=== PATIENT | male | born 1970 | race Caucasian/White ===

== ENCOUNTER 2016-07-10 13:55 | Emergency (ER) | payer MEDICAID ==
[2016-07-10] MEDS ORDERED: MAG HYDROX/AL HYDROX/SIMETH 30 ML UDC PO STA (15:32)
[2016-07-10] MEDS ORDERED: LIDOCAINE VISCOUS 2% 15 ML UDC MM STA (15:32)
[2016-07-10] MEDS ORDERED: FAMOTIDINE 20 MG TABLET PO STA (15:32)
--- NOTE | 2016-07-10 15:35 | ED Physician Documentation ---
History of Present Illness - Stated complaint Stated Complaint: CHEST PX, SOA - Chief complaint Chief Complaint: Cardiac - Additonal information Additional information: hx from pt 46 male smoker hx PUD s/p surgery for same out of omeprazole for 2 weeks sharp int pleuritic left sided CP since 730 Am mild cough no fever no leg swelling no travel Review of Systems Constitutional: denies: Fever, Chills Cardiac: reports: Chest pain / pressure. denies: Palpitations Respiratory: reports: Dyspnea, Cough GI: reports: Abdominal Pain (LUQ) Musculoskeletal: denies: Extremity swelling, Joint swelling Neurologic: denies: Generalized weakness Immunocompromised: denies: Immunocompromised PD PAST MEDICAL HISTORY - Past Medical History Cardiovascular: None Respiratory: None Neuro: Headache/migraine Endocrine/Autoimmune: None GI: GERD, Ulcers, Other : None HEENT: None Psych: None Musculoskeletal: None - Past Surgical History Past Surgical History: Yes General: Appendectomy, Gastric surgery (Exploratory laparotomy for perforated peptic ulcer.) HEENT: Tonsil/Adenoidectomy - Present Medications Home Medications: Ambulatory Orders Medication Instructions Recorded Confirmed Omeprazole 20 mg PO BID #60 capsule. 08/09/15 07/10/16 Omeprazole [PriLOSEC] 20 mg PO BID #60 capsule 07/10/16 - Allergies Allergies/Adverse Reactions: Allergies Allergy/AdvReac Type Severity Reaction Status Date / Time No Known Drug Allergies Allergy Verified 07/10/16 14:02 - Social History Does the pt smoke?: Yes Smoking Status: Current every day smoker Does the pt drink ETOH?: Yes Does the pt have substance abuse?: No - Immunizations Immunizations are current?: Yes Immunizations: TDAP current <10years - POLST Patient has POLST: No Results - Vitals Vitals: Vital Signs - 24 hr 07/10/16 07/10/16 13:59 15:50 Temperature 36.7 C Heart Rate 85 57 L Respiratory 14 16 Rate Blood Pressure 154/82 H 165/90 H O2 Saturation 100 99 Oxygen O2 Source Room air - EKG (time done) 1409 Rate: Rate (enter#) (77) Rhythm: NSR [place]: Normal Intervals: Normal ME QRS: Normal Ischemia: Normal ST segments - Labs Labs: Laboratory Tests 07/10/16 16:30 Troponin I < 0.04 - Rads (name of study) CXR Radiology: See rad report (hyperinflated lungs, no acute process, no pneumo) PD MEDICAL DECISION MAKING - ED course ED course: PERC negative EKG non ischemic, will check trop, if neg after 8 hr of sx feel ACS ruled out CXR to eval for pneumo and GI meds in case this is referred from his PUD exacerbated by being out of meds he feels totally better after GI meds and is reassured re neg wup Departure - Departure Disposition: 01 Home, Self Care Clinical Impression: GERD (gastroesophageal reflux disease) Qualifiers: Esophagitis presence: esophagitis presence not specified Qualified Code(s): K21.9 - Gastro-esophageal reflux disease without esophagitis Instructions: ED GERD Prescriptions: Omeprazole [PriLOSEC] 20 mg PO DAILY #14 capsule Comments: Please follow up with your PMD about your blood pressure - it was high today
[2016-07-10 15:51] VITALS: BP 165/90
[2016-07-10] MEDS ORDERED: LIDOCAINE VISCOUS 2% 15 ML UDC MM ONE (15:55)
[2016-07-10] MEDS ORDERED: FAMOTIDINE 20 MG TABLET ONE (15:55)
[2016-07-10] MEDS ORDERED: MAG HYDROX/AL HYDROX/SIMETH 30 ML UDC ONE (15:56)
--- NOTE | 2016-07-10 16:02 | XRAY Preliminary Report ---
Exam: XR Chest 2 View PA/LAT IMPRESSION: 1. Hyperinflated lungs. 2. No acute pulmonary process. [facility] SITE ID: [id number]
--- NOTE | 2016-07-10 16:30 | XRAY Report ---
EXAM: CHEST RADIOGRAPHY EXAM DATE: 07/10/2016 03:43 p.m. CLINICAL HISTORY: Dyspnea and chest pain. COMPARISON: 09/01/2013. TECHNIQUE: 2 views. FINDINGS: Lungs/Pleura: Lungs are mildly hyperinflated. No focal opacities. No pneumothorax or effusions. Mediastinum: Heart and mediastinal contours are unremarkable. Other: Probable pectus excavatum. IMPRESSION: 1. Hyperinflated lungs. 2. No acute pulmonary process. [facility] Referring Provider Line: [phone] SITE ID: [id number]
== END 2016-07-10 17:19 | disposition home or self-care (01) ==
LOC: ED 13:55
DX: K21.9 Gastro-esophageal reflux disease without esophagitis (principal); Z87.11 Personal history of peptic ulcer disease; F17.200 Nicotine dependence, unspecified, uncomplicated
CPT/HCPCS: 36415; 71020; 84484; 93005; 93010; 99282; 99284; A9270

== ENCOUNTER 2016-10-08 15:33 | Emergency (ER) | payer MEDICAID ==
[2016-10-08 15:50] VITALS: BP 151/88
--- NOTE | 2016-10-08 20:26 | ED Physician Documentation ---
ED Addendum - Addendum Addendum: 10/08/16 20:26 pt not in room per nurse he had to go to work and will come back
== END 2016-10-08 16:15 | disposition left against medical advice (07) ==
LOC: ED 15:33
DX: Z53.21 Procedure and treatment not carried out due to patient leaving prior to being seen by health care provider (principal)
CPT/HCPCS: 99281

== ENCOUNTER 2017-05-03 17:50 | Emergency (ER) | payer MEDICAID ==
[2017-05-03 18:03] VITALS: BP 171/109
[2017-05-03] MEDS ORDERED: PANTOPRAZOLE 40 MG TABLET PO STA (18:09)
--- NOTE | 2017-05-03 18:12 | ED Physician Documentation ---
PD HPI ABD PAIN - Stated complaint Stated Complaint: LT ABDOMINAL PX - Chief complaint Chief Complaint: Abd Pain - History obtained from History obtained from: Patient - History of Present Illness Timing - onset: Other (47-year-old gentleman with history of ulcers and gastritis, he actually had a perforated ulcer in 2013. He has not been following up with primary care and therefore has not been getting a prescription for his omeprazole and he has been paying out of pocket due to monetary constraints he ran out of omeprazole about a month and a half ago. Within the a few days after running out he started to get epigastric and Left upper quadrant pain that is worse in the mornings with reflux. No acute issue but he would like a refill of his omeprazole. Of note he does drink fairly heavily, a sixpack a night, and was counseled that this certainly is not making his stomach issues any better.) Review of Systems Constitutional: denies: Fever, Chills Cardiac: denies: Chest pain / pressure, Palpitations Respiratory: denies: Dyspnea, Cough GI: reports: Nausea. denies: Vomiting, Bloody / black stool PD PAST MEDICAL HISTORY - Past Medical History Cardiovascular: None Respiratory: None Neuro: Headache/migraine Endocrine/Autoimmune: None GI: GERD, Ulcers, Other : None HEENT: None Psych: None Musculoskeletal: None - Past Surgical History Past Surgical History: Yes General: Appendectomy, Gastric surgery HEENT: Tonsil/Adenoidectomy - Present Medications Home Medications: Ambulatory Orders Medication Instructions Recorded Confirmed Omeprazole 20 mg PO BID #120 capsule. 05/03/17 Omeprazole [PriLOSEC] 40 mg PO BID 05/03/17 05/03/17 - Allergies Allergies/Adverse Reactions: Allergies Allergy/AdvReac Type Severity Reaction Status Date / Time No Known Drug Allergies Allergy Verified 10/08/16 15:41 - Social History Does the pt smoke?: Yes Smoking Status: Current every day smoker Does the pt drink ETOH?: Yes Does the pt have substance abuse?: No - Immunizations Immunizations are current?: Yes Immunizations: TDAP current <10years - POLST Patient has POLST: No PD ED PE NORMAL - Vitals Vital signs reviewed: Yes - General General: Alert and oriented X 3, No acute distress - Abdomen Abdomen: Normal bowel sounds, Soft, Non tender - Neuro Neuro: Alert and oriented X 3, Normal speech Results - Vitals Vitals: Vital Signs - 24 hr 05/03/17 17:56 Temperature 36.8 C Heart Rate 84 Respiratory 18 Rate Blood Pressure 171/109 H O2 Saturation 99 Oxygen O2 Source Room air PD MEDICAL DECISION MAKING - ED course ED course: 47-year-old gentleman with chronic ulcers/gastritis issues who ran out of his medications because he has not been seeing his doctor. He was counseled to cut back on alcohol and follow-up with his primary care physician. He is nontender and therefore there is no evidence of acute emergency medical condition. Departure - Departure Disposition: Home, Self Care Clinical Impression: Medication refill Gastritis Qualifiers: Gastritis type: unspecified gastritis Chronicity: chronic Gastritis bleeding: without bleeding Qualified Code(s): K29.50 - Unspecified chronic gastritis without bleeding Condition: Good Record reviewed to determine appropriate education?: Yes Instructions: ED PUD Vs Gastritis Follow-Up: Jolene Villeda PA-C [Physician No Access] - Prescriptions: Omeprazole 20 mg PO BID #120 capsule. Comments: Call your doctor to arrange a follow-up appointment, make the next available appointment. In the interim, return anytime if worse or if new symptoms develop. Your blood pressure was elevated today on check into the emergency department. This does not mean that you have hypertension, it is a common phenomenon to come to the emergency department and have elevated blood pressure. I recommend that you see your primary care physician within the week to have it rechecked when you are feeling better.
== END 2017-05-03 18:16 | disposition home or self-care (01) ==
LOC: ED 17:50
DX: K29.50 Unspecified chronic gastritis without bleeding (principal); Z76.0 Encounter for issue of repeat prescription; F17.200 Nicotine dependence, unspecified, uncomplicated; Z87.11 Personal history of peptic ulcer disease; R03.0 Elevated blood-pressure reading, without diagnosis of hypertension
CPT/HCPCS: 99283; A9270

== ENCOUNTER 2018-10-13 11:00 | Outpatient (CLI) | payer MEDICAID | END 2018-10-13 11:01 | disposition short-term general hospital (02) | LOC: EMS 11:00 | PROVIDERS: ATTEND Surgery | DX: R07.9 Chest pain, unspecified (principal) | CPT/HCPCS: A0425; A0427; A0999 ==

== ENCOUNTER 2019-03-19 12:01 | Emergency (ER) | payer MEDICAID ==
[2019-03-19] MEDS ORDERED: LIDOCAINE-EPINEPH-TETRACAINE 3 ML SYRINGE TOP STA (12:16)
--- NOTE | 2019-03-19 12:23 | ED Physician Documentation ---
History of Present Illness - Stated complaint Stated Complaint: NOSE BLEED - Chief complaint Chief Complaint: Heent - History obtained from History obtained from: Patient - History of Present Illness Timing: Last night (Since last night he has had a pretty constant nosebleed on the left. He does feel weak and dizzy from the blood loss. Note made that he drinks heavily and daily. He does not have a history of nosebleeds. Is not medically anticoagulated.) Review of Systems Constitutional: denies: Fever, Chills Nose: denies: Rhinorrhea / runny nose, Congestion Throat: denies: Sore throat PD PAST MEDICAL HISTORY - Past Medical History Cardiovascular: None Respiratory: None Endocrine/Autoimmune: None GI: GERD, Ulcers, Other : None HEENT: None Psych: None Musculoskeletal: None - Past Surgical History Past Surgical History: Yes General: Appendectomy, Gastric surgery HEENT: Tonsil/Adenoidectomy - Present Medications Home Medications: Ambulatory Orders Medication Instructions Recorded Confirmed Omeprazole [PriLOSEC] 40 mg PO BID 05/03/17 05/03/17 - Allergies Allergies/Adverse Reactions: Allergies Allergy/AdvReac Type Severity Reaction Status Date / Time No Known Drug Allergies Allergy Verified 03/19/19 12:11 - Social History Does the pt smoke?: Yes Smoking Status: Current every day smoker Does the pt drink ETOH?: Yes Does the pt have substance abuse?: No - Immunizations Immunizations are current?: Yes Immunizations: TDAP current <10years - POLST Patient has POLST: No PD ED PE NORMAL - Vitals Vital signs reviewed: Yes - General General: Alert and oriented X 3, No acute distress - HEENT HEENT: Other (Held active bleeding from the left nares, unable to see a source on initial examination. Let placed with a cottonball during exam.) - Neck Neck: Supple, no meningeal sign, No bony TTP - Neuro Neuro: Alert and oriented X 3, Normal speech Results - Vitals Vitals: Vital Signs - 24 hr 03/19/19 12:08 Temperature 37.4 C Heart Rate 88 Respiratory 18 Rate Blood Pressure 173/94 H O2 Saturation 95 Oxygen O2 Source Room air - Labs Labs: Laboratory Tests 03/19/19 03/19/19 03/19/19 12:38 12:38 12:38 WBC 7.9 RBC 4.31 L Hgb 14.8 Hct 44.0 MCV 102.1 H MCH 34.3 H MCHC 33.6 RDW 12.5 Plt Count 187 MPV 10.4 Neut # (Auto) 6.0 Lymph # (Auto) 1.1 L [place] # (Auto) 0.6 Eos # (Auto) 0.1 Baso # (Auto) 0.1 Absolute Nucleated RBC 0.00 Nucleated RBC % 0.0 PT 10.7 INR 0.9 Sodium 137 Potassium 4.3 Chloride 100 L Carbon Dioxide 22 Anion Gap 15.0 H BUN 13 Creatinine 0.7 Estimated GFR (MDRD) 120 Glucose 105 H Calcium 9.2 Total Bilirubin 0.8 AST 48 H ALT 39 Alkaline Phosphatase 54 Total Protein 7.6 Albumin 4.6 Globulin 3.0 Albumin/Globulin Ratio 1.5 Lipase 26 Procedures - Epistaxis Site: Left, Anterior Preparation: Clots removed, Other (LET) Treatment: Silver Nitrate Other: Observed - no bleeding, Pt tolerated well Departure - Departure Disposition: 01 Home, Self Care Clinical Impression: Epistaxis Condition: Good Record reviewed to determine appropriate education?: Yes Instructions: ED Nosebleed Comments: Call your doctor to arrange a follow-up appointment, make the next available appointment. In the interim, return anytime if worse or if new symptoms develop. Your blood pressure was elevated today on check into the emergency department. This does not mean that you have hypertension, it is a common phenomenon to come to the emergency department and have elevated blood pressure. I recommend that you see your primary care physician within the week to have it rechecked when you are feeling better.
[2019-03-19 13:07] LABS: BASOPHILS # (AUTO) 0.1 10^3/uL (0.0-0.1); BASOPHILS % (AUTO) 0.8 %; EOSINOPHILS # (AUTO) 0.1 10^3/uL (0.0-0.7); EOSINOPHILS % (AUTO) 1.4 %; HGB - HEMOGLOBIN 14.8 g/dL (14.0-18.0); LYMPHOCYTES # (AUTO) 1.1 10^3/uL (1.5-3.5); LYMPHOCYTES % (AUTO) 14.2 %; MEAN CORPUSCULAR HEMOGLOBIN 34.3 pg (27.0-31.0); MEAN CORPUSCULAR HGB CONC 33.6 g/dL (32.0-36.0); MEAN CORPUSCULAR VOLUME 102.1 fL (80.0-94.0); MEAN PLATELET VOLUME 10.4 fL (7.4-11.4); MONOCYTES # (AUTO) 0.6 10^3/uL (0.0-1.0); MONOCYTES % (AUTO) 7.1 %; PLT - PLATELET COUNT 187 10^3/uL (130-450); RED BLOOD COUNT 4.31 10^6/uL (4.70-6.10); RED CELL DISTRIBUTION WIDTH 12.5 % (12.0-15.0); WHITE BLOOD COUNT 7.9 x10^3/uL (4.8-10.8)
[2019-03-19 13:13] LABS: INR 0.9 (0.8-1.2); PT - PROTHROMBIN TIME 10.7 secs (9.9-12.6)
[2019-03-19 13:19] LABS: ALBUMIN 4.6 g/dL (3.2-5.5); ALBUMIN/GLOBULIN RATIO 1.5 (1.0-2.2); BILIRUBIN,TOTAL 0.8 mg/dL (0.2-1.0); CALCIUM 9.2 mg/dL (8.5-10.3); CREATININE 0.7 mg/dL (0.6-1.2); TOTAL PROTEIN 7.6 g/dL (6.7-8.2)
[2019-03-19 13:31] VITALS: BP 151/92
[2019-03-19] MEDS ORDERED: OXYMETAZOLINE HCL 100 SPRAYS BOTTLE NAS STA (13:31)
== END 2019-03-19 13:46 | disposition home or self-care (01) ==
LOC: ED 12:01
DX: R04.0 Epistaxis (principal); F17.200 Nicotine dependence, unspecified, uncomplicated; R03.0 Elevated blood-pressure reading, without diagnosis of hypertension; D69.6 Thrombocytopenia, unspecified
CPT/HCPCS: 30901; 36415; 80053; 83690; 85025; 85610; 99283; 99284; A9270

== ENCOUNTER 2019-03-19 20:57 | Outpatient (CLI) | payer MEDICAID | END 2019-03-19 20:58 | disposition EMS.NT | LOC: EMS 20:57 | PROVIDERS: ATTEND Surgery | DX: R04.0 Epistaxis (principal) | CPT/HCPCS: A0425; A0429 ==

== ENCOUNTER 2019-03-19 21:21 | Emergency (ER) | payer MEDICAID ==
--- NOTE | 2019-03-19 21:48 | ED Physician Documentation ---
History of Present Illness - Stated complaint Stated Complaint: EPISTAXIS - Chief complaint Chief Complaint: Heent - Additonal information Additional information: This is a 48-year-old male returns to emergency department with a nosebleed. Patient is a daily drinker and he states that he began having a nosebleed yesterday, it stopped on its own but then recurred today, he was seen here and had cautery performed which helped temporarily but then began to rebleed. He has not used his Afrin which was given to him, it was given once while he was department. He had labs drawn while he was in the emergency department which showed a mild thrombocytopenia, normal hemoglobin, unremarkable INR. He states the bleeding is from the left side of his nose. A nose clamp was placed by the paramedics in route. Review of Systems Constitutional: denies: Fever Nose: reports: Epistaxis Cardiac: denies: Chest pain / pressure Respiratory: denies: Dyspnea Neurologic: denies: Generalized weakness, Syncope PD PAST MEDICAL HISTORY - Past Medical History Cardiovascular: None Respiratory: None Endocrine/Autoimmune: None GI: GERD, Ulcers, Other : None HEENT: None Psych: None Musculoskeletal: None - Past Surgical History Past Surgical History: Yes General: Appendectomy, Gastric surgery HEENT: Tonsil/Adenoidectomy - Present Medications Home Medications: Ambulatory Orders Medication Instructions Recorded Confirmed Omeprazole [PriLOSEC] 40 mg PO BID 05/03/17 05/03/17 - Allergies Allergies/Adverse Reactions: Allergies Allergy/AdvReac Type Severity Reaction Status Date / Time No Known Drug Allergies Allergy Verified 03/19/19 12:11 - Social History Does the pt smoke?: Yes Smoking Status: Current every day smoker Does the pt drink ETOH?: Yes Does the pt have substance abuse?: No - Immunizations Immunizations are current?: Yes Immunizations: TDAP current <10years - POLST Patient has POLST: No PD ED PE NORMAL - Vitals Vital signs reviewed: Yes - General General: Alert and oriented X 3 - HEENT HEENT: Other (Nose clamps in place, when these are removed he has a slow trickle from the left nostril. There is no bleeding down the posterior pharynx. No obvious oozing from the right nare.) - Neck Neck: Supple, no meningeal sign - Cardiac Cardiac: RRR - Respiratory Respiratory: No respiratory distress, Clear bilaterally - Abdomen Abdomen: Soft, Non distended - Derm Derm: No rash - Extremities Extremities: No deformity - Neuro Neuro: Alert and oriented X 3 - Psych Psych: Normal mood, Normal affect Results - Vitals Vitals: Oxygen O2 Source Room air PD MEDICAL DECISION MAKING - ED course ED course: Patient arrives with nose clamps in place and very little oozing. There is no blood going down his posterior pharynx. no signs of posterior epistaxis. Sounds like at home he did not try using the nose clamps or the Afrin. We gave him 2 sprays of aspirin in each nostril the nose clamps were repositioned and proper location and they are left on for her 25 minutes, after when they removed patient had no oozing. Patient was reevaluated at 2300, he is at the nose clamps off for an hour and has had no repeat bleeding. He is feeling well. His vital signs are unremarkable. He had normal hemoglobin on his visit earlier today and he has not lost much blood since then, I do not feel that repeat labs are indicated at this time. I reviewed care for nosebleeds at home, avoiding any trauma to the nose and return precautions with the patient, who agrees with this plan and was discharged home in good condition. Departure - Departure Disposition: 01 Home, Self Care Clinical Impression: Epistaxis Condition: Good Instructions: Nosebleed Comments: You were seen today for nosebleed. I am glad that it has stopped. If it recurs, please use 2 sprays of Afrin in each nostril and then put the nose clamps back on as we discussed. If you are still having bleeding after 15 minutes, return to the emergency department. Avoid putting anything up your nose, do not blow your nose forcefully for the next several days, and if you are wiping your nose try to just dab at the nostrils, as forceful movements could dislodge clot and cause more bleeding. Follow-up with your primary care provider. As we discussed you had some mild abnormalities of your labs, which may be due to your drinking, please follow up with your primary care provider on these as well. Discharge Date/Time: 03/19/19 23:47
[2019-03-19 23:17] VITALS: BP 123/76
== END 2019-03-19 23:47 | disposition home or self-care (01) ==
LOC: ED 21:21
DX: R04.0 Epistaxis (principal); D69.6 Thrombocytopenia, unspecified; F17.200 Nicotine dependence, unspecified, uncomplicated

== ENCOUNTER 2019-07-19 15:10 | Emergency (ER) | payer MEDICAID ==
[2019-07-19 15:19] VITALS: BP 112/45
--- NOTE | 2019-07-19 15:57 | ED Physician Documentation ---
History of Present Illness - Stated complaint Stated Complaint: 'S NOTE - Chief complaint Chief Complaint: General - History obtained from History obtained from: Patient - History of Present Illness Timing: How many days ago (7) - Additonal information Additional information: 49-year-old gentleman comes to the emergency department requesting a doctor's note to return him to work. Patient reports that about 5 days ago he mowed his lawn pulled weeds. Few hours after that he began to have watery eyes. 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 Patient denies that over the last 4 to 5 days he has had any cough nasal congestion sore throat runny nose dyspnea chest pain. His isolated complaint was watery eyes for which he did not take any allergy medication. Work requires a note today to return. Review of Systems Constitutional: denies: Fever, Chills, Myalgias, Fatigue, Weight Loss, Sweats Eyes: reports: Other (watery eyes). denies: Loss of vision Ears: denies: Loss of hearing, Ear pain, Drainage/discharge Nose: denies: Rhinorrhea / runny nose, Congestion, Epistaxis, Sinus pressure / pain, Foreign Body Throat: denies: Dental pain / toothache, Oral lesions / sores Cardiac: denies: Chest pain / pressure, Palpitations Respiratory: denies: Dyspnea GI: denies: Abdominal Pain : denies: Dysuria, Frequency PD PAST MEDICAL HISTORY - Past Medical History Cardiovascular: None Respiratory: None Endocrine/Autoimmune: None GI: GERD, Ulcers, Other : None HEENT: None Psych: None Musculoskeletal: None - Past Surgical History Past Surgical History: Yes General: Appendectomy, Gastric surgery HEENT: Tonsil/Adenoidectomy - Present Medications Home Medications: Ambulatory Orders Medication Instructions Recorded Confirmed Omeprazole [PriLOSEC] 40 mg PO BID 05/03/17 05/03/17 - Allergies Allergies/Adverse Reactions: Allergies Allergy/AdvReac Type Severity Reaction Status Date / Time No Known Drug Allergies Allergy Verified 03/19/19 12:11 - Social History Does the pt smoke?: Yes Smoking Status: Current every day smoker Does the pt drink ETOH?: Yes Does the pt have substance abuse?: No Substance Use and Type: Marijuana - Immunizations Immunizations are current?: Yes Immunizations: TDAP current <10years - POLST Patient has POLST: No PD ED PE NORMAL - General General: Alert and oriented X 3, No acute distress, Well developed/nourished - HEENT HEENT: Atraumatic, PERRL, EOMI, Ears normal, Moist mucous membranes, Pharynx benign - Neck Neck: Supple, no meningeal sign, No adenopathy - Cardiac Cardiac: RRR, No murmur - Respiratory Respiratory: No respiratory distress - Abdomen Abdomen: Normal bowel sounds Results - Vitals Vitals: Vital Signs - 24 hr 07/19/19 15:15 Temperature 36.8 C Heart Rate 97 Respiratory 16 Rate Blood Pressure 112/45 L O2 Saturation 98 Oxygen O2 Source Room air PD MEDICAL DECISION MAKING - ED course Complexity details: d/w patient ED course: 49 year old male here for a work note to return to work as he developed watery eyes after moving his lawn 4 days ago - he has no symptoms suggestive of viral URI or COVID 19 symptoms and will defer testing today - work note provided to return him to work Departure - Departure Disposition: 01 Home, Self Care Condition: Stable Comments: Milton lewis are medically cleared to return to work today. In the future should you mow your lawn and developed watery eyes it is okay to take an [id number] allergy medicine such as Zyrtec or Claritin they are typically nonsedating.
--- NOTE | 2019-07-21 12:41 | ED Physician Documentation ---
Departure - Departure Disposition: 01 Home, Self Care Clinical Impression: Watery eyes Condition: Stable Comments: Milton lewis are medically cleared to return to work today. In the future should you mow your lawn and developed watery eyes it is okay to take an [id number] allergy medicine such as Zyrtec or Claritin they are typically nonsedating. Discharge Date/Time: 07/19/19 16:01
== END 2019-07-19 16:01 | disposition home or self-care (01) ==
LOC: ED 15:10
DX: H57.89 Other specified disorders of eye and adnexa (principal); F17.200 Nicotine dependence, unspecified, uncomplicated
CPT/HCPCS: 99281; 99284

== ENCOUNTER 2020-01-26 11:59 | Emergency (ER) | payer MEDICAID ==
[2020-01-26] MEDS ORDERED: HYDROmorphone 1 MG/ML CARPUJECT IM STA (13:05)
--- NOTE | 2020-01-26 13:13 | ED Physician Documentation ---
History of Present Illness - Stated complaint Stated Complaint: GLF LT SIDE PX - Chief complaint Chief Complaint: General - History of Present Illness Timing: How many days ago (3) - Additonal information Additional information: 49-year-old male presents the emergency department with 3 days left posterior lateral rib pain. He reports slipping off the back of his porch 3 nights ago and landing directly onto the ground on his left side. Since then he has had some swelling in these posterior ribs with ecchymosis. It does hurt to take a deep breath. He has had no hemoptysis. He does not carry a history of COPD or asthma. He is a heavy tobacco user. He reports a dry cough. Denies a history of high blood pressure or diabetes. When he fell he did not strike his head or lose consciousness and was able to get up on his own. No anticoagulation Review of Systems Constitutional: reports: Reviewed and negative Eyes: reports: Reviewed and negative Ears: reports: Reviewed and negative Nose: reports: Reviewed and negative Throat: reports: Reviewed and negative Cardiac: reports: Reviewed and negative Respiratory: reports: Cough. denies: Dyspnea, Hemoptysis, Wheezing GI: reports: Reviewed and negative : reports: Reviewed and negative Skin: reports: Other (ecchymosis left lateral posterior ribs) Musculoskeletal: reports: Other (left lateral posterior ribs). denies: Neck pain Neurologic: reports: Reviewed and negative Psychiatric: reports: Reviewed and negative PD PAST MEDICAL HISTORY - Past Medical History Past Medical History: Yes Cardiovascular: None Respiratory: None Endocrine/Autoimmune: None GI: GERD, Ulcers, Other : None HEENT: None Psych: None Musculoskeletal: None - Past Surgical History Past Surgical History: Yes General: Appendectomy, Gastric surgery HEENT: Tonsil/Adenoidectomy - Present Medications Home Medications: Ambulatory Orders Medication Instructions Recorded Confirmed Ibuprofen [Motrin] 600 mg PO Q6H PRN #30 tab 01/26/20 traMADol [Ultram] 50 mg PO TID PRN #15 tablet 01/26/20 - Allergies Allergies/Adverse Reactions: Allergies Allergy/AdvReac Type Severity Reaction Status Date / Time No Known Drug Allergies Allergy Verified 01/26/20 12:20 - Social History Does the pt smoke?: Yes Smoking Status: Current every day smoker Does the pt drink ETOH?: Yes Does the pt have substance abuse?: No - Immunizations Immunizations are current?: Yes Immunizations: TDAP current <10years - POLST Patient has POLST: No PD ED PE EXPANDED - General General: Alert, In Pain - Neck Neck: Supple w/out meningeal sx. No: Adenopathy, Bony TTP, Limited ROM - Cardiac Cardiac: Regular Rate, Regular Rhythm, Radial strong equal, Cap refill < 2 sec - Respiratory Respiratory: Clear to ausultation anahi, Other (muliple area of ecchymosis left lateral posterior ribs with point tenderness, no crepitus. Full pulmonary excursion, though painful). No: Labored, Gasping, Retractions, Wheezing, Rhonchi - Abdomen Abdomen: Normal Bowel sounds. No: Tender to palpation - Derm Derm: Bruising (left lateral posterior ribs) - Extremities Extremities: Normal. No: Tenderness - Neuro Neuro: Alert and Oriented X 3, CNII-XII intact - Psych Psych: Normal Results - Vitals Vitals: Vital Signs - 24 hr 01/25/20 12:17 Temperature 36.8 C Heart Rate 72 Respiratory 18 Rate Blood Pressure 152/82 H O2 Saturation 99 Oxygen O2 Source Room air - Rads (name of study) PA chest with left ribs Radiology: Final report received (No definite trauma found. No pneumothorax identified. ) PD MEDICAL DECISION MAKING - ED course Complexity details: reviewed results, re-evaluated patient, considered differential, d/w patient ED course: 49-year-old male presents to the emergency department for evaluation of left lateral posterior rib pain after fall from his deck 3 days ago. He has many areas of point tenderness with ecchymosis on the lower lateral ribs. X-ray with rib series did not show obvious fracture. He was offered a milligram of Dilaudid here in the ED but he did decline. He was seen by respiratory therapy for incentive spirometry. His PIC score is 8 (though in the absence of definite rib fx, the PIC score may not be valid) This gentleman has no tachypnea or hypoxia. No pneumothorax on x-ray. He will be discharged home with prescription of ibuprofen and tramadol. emergent return precautions discussed Departure - Departure Disposition: 01 Home, Self Care Clinical Impression: Fall Qualifiers: Encounter type: initial encounter Qualified Code(s): W19.XXXA - Unspecified fall, initial encounter Contusion of rib on left side Qualifiers: Encounter type: initial encounter Qualified Code(s): S20.212A - Contusion of left front wall of thorax, initial encounter Condition: Stable Record reviewed to determine appropriate education?: Yes Instructions: ED Contusion Rib Follow-Up: [facility] [Provider Group] - Within 1 week Prescriptions: Ibuprofen [Motrin] 600 mg PO Q6H PRN #30 tab PRN Reason: Pain traMADol [Ultram] 50 mg PO TID PRN #15 tablet PRN Reason: Pain Comments: Milton as we discussed the x-rays do not show a definitive fracture however you may have very subtle fractures that we cannot see on x-ray. You do have a fair amount of bruising on your chest wall, this is called a contusion. The biggest risk with any fall and rib contusion is that you could develop a pneumonia from not taking deep enough breaths. Please use the incentive spirometer at home 4- 6 times a day. I encourage you to take ibuprofen with food for the next few days to help with inflammation. I have also prescribed a limited amount of tramadol to help with pain. If at any point you develop shortness of breath, develop fevers have bloody sputum or feel that you cannot breathe adequately please return immediately to the ER. In the long-term it is very important to establish yourself with a primary care provider. [facility] is accepting new patients and I encourage you to schedule an appointment to establish care as soon as possible.
--- NOTE | 2020-01-26 14:38 | XRAY Report ---
PROCEDURE: Ribs w/PA Chest LT INDICATIONS: fall r/o fx TECHNIQUE: 2 views of the left ribs were acquired, along with a single view chest. COMPARISON: Two-view chest FINDINGS: Surgical changes and devices: None. Bones and chest wall: No fractures or dislocations. No suspicious bony lesions. Overlying soft tis sues appear unremarkable. Lungs and pleura: No pleural effusions or pneumothorax. Lungs appear clear. Mediastinum: Mediastinal contours appear normal. Heart size is normal. IMPRESSION: No definite trauma found. No pneumothorax identified. Source of persistent rib pain after trauma is n ot seen. Delayed plain films may allow detection of a nondisplaced rib fracture that is not initially visible, however. Reviewed by: Cody Bee MD on 01/26/2020 2:36 PM PST Approved by: Cody Bee MD on 01/26/2020 2:36 PM PST Station ID: [id number]
[2020-01-26 15:14] VITALS: BP 158/79
== END 2020-01-26 15:19 | disposition home or self-care (01) ==
LOC: ED 11:59
DX: S20.212A Contusion of left front wall of thorax, initial encounter (principal); W13.8XXA Fall from, out of or through other building or structure, initial encounter; Y92.008 Other place in unspecified non-institutional (private) residence as the place of occurrence of the external cause; F17.210 Nicotine dependence, cigarettes, uncomplicated
CPT/HCPCS: 99283; 99284

== ENCOUNTER 2021-07-26 17:08 | Outpatient (CLI) | payer MEDICAID | END 2021-07-26 17:09 | disposition critical access hospital (66) | LOC: EMS 17:08 | DX: S09.90XA Unspecified injury of head, initial encounter (principal); W10.8XXA Fall (on) (from) other stairs and steps, initial encounter; Y92.22 Religious institution as the place of occurrence of the external cause; Z72.89 Other problems related to lifestyle | CPT/HCPCS: A0425; A0427; A0999 ==

== ENCOUNTER 2021-07-26 17:36 | Emergency (ER) | payer MEDICAID ==
[2021-07-26 17:48] VITALS: BP 182/98
--- NOTE | 2021-07-26 17:53 | ED Physician Documentation ---
History of Present Illness - Stated complaint Stated Complaint: FALL DOWN STAIRS - Chief complaint Chief Complaint: Trauma Hd/Nk - Additonal information Additional information: 51-year-old male presents to the emergency department after walking [place] the stairs at the [facility]. He had forgotten something outside and was turning around when he lost balance falling backwards while he had his backpack on. He thinks he lost consciousness. He is not certain if he fainted before falling. He presents disheveled in a c-collar. He has a very large hematoma of his right forehead but is otherwise feeling well. He is homeless. He does have a history of alcohol use but states he only drank 1 beer this morning and has not had any drink for the preceding few days. He does not appear clinically intoxicated. Review of Systems Constitutional: denies: Fever, Chills Eyes: reports: Reviewed and negative Ears: reports: Reviewed and negative Nose: reports: Reviewed and negative Throat: reports: Reviewed and negative Cardiac: reports: Reviewed and negative Respiratory: reports: Reviewed and negative GI: reports: Reviewed and negative Skin: reports: Abrasion (s) Musculoskeletal: denies: Neck pain, Back pain, Extremity pain, Joint pain, Joint swelling, Pain with weight bearing Neurologic: reports: Head injury, LOC. denies: Syncope (uncertain) PD PAST MEDICAL HISTORY - Past Medical History Cardiovascular: None Respiratory: None Endocrine/Autoimmune: None GI: GERD, Ulcers, Other : None HEENT: None Psych: None Musculoskeletal: None - Past Surgical History Past Surgical History: Yes General: Appendectomy, Gastric surgery HEENT: Tonsil/Adenoidectomy - Present Medications Home Medications: Ambulatory Orders Medication Instructions Recorded Confirmed Ibuprofen [Motrin] 600 mg PO Q6H PRN #30 tab 01/26/20 traMADol [Ultram] 50 mg PO TID PRN #15 tablet 01/26/20 - Allergies Allergies/Adverse Reactions: Allergies Allergy/AdvReac Type Severity Reaction Status Date / Time No Known Drug Allergies Allergy Verified 07/26/21 17:48 - Social History Does the pt smoke?: Yes Smoking Status: Current every day smoker Does the pt drink ETOH?: Yes Does the pt have substance abuse?: No - Immunizations Immunizations are current?: Yes Immunizations: TDAP current <10years - POLST Patient has POLST: No PD ED PE EXPANDED - General General: Alert, Disheveled, poorly kept - HEENT HEENT: Head injury (Large right frontal scalp hematoma), PERRL, EOMI, Ears normal, Moist mucous membranes, Dentition normal (Poor dentition) - Neck Neck: Supple w/out meningeal sx. No: Adenopathy - Cardiac Cardiac: Regular Rate, Radial strong equal, Pedal strong equal, Cap refill < 2 sec - Respiratory Respiratory: Clear to ausultation anahi. No: Distress, Labored - Abdomen Abdomen: Normal Bowel sounds. No: Tender to palpation - Back Back: No: Vertebral tenderness (No tenderness elicited thoracic or lower lumbar spine. No crepitus step-off or deformities noted) - Derm Derm: Abrasion (s) (Large right frontal scalp hematoma 3 x 3 cm) - Extremities Extremities: Normal. No: Deformity, Tenderness - Neuro Neuro: Alert and Oriented X 3, CNII-XII intact - GCS Eye Opening: Spontaneous Motor: Obeys Commands Verbal: Oriented Total: 15 Results - Vitals Vitals: Vital Signs - 24 hr 07/26/21 17:40 Temperature 36.8 C Heart Rate 75 Respiratory 18 Rate Blood Pressure 182/98 H O2 Saturation 94 Oxygen O2 Source Room air - Labs Labs: Laboratory Tests 07/26/21 07/26/21 18:13 18:13 WBC 6.1 RBC 3.82 L Hgb 13.5 L Hct 39.2 L MCV 102.6 H MCH 35.3 H MCHC 34.4 RDW 12.4 Plt Count 157 MPV 10.4 Neut # (Auto) 4.0 Lymph # (Auto) 1.4 L [place] # (Auto) 0.5 Eos # (Auto) 0.2 Baso # (Auto) 0.1 Absolute Nucleated RBC 0.00 Nucleated RBC % 0.0 Sodium 135 Potassium 3.6 Chloride 100 L Carbon Dioxide 23 Anion Gap 12.0 BUN 11 Creatinine 0.5 L Estimated GFR (MDRD) 175 Glucose 79 Calcium 8.9 Total Bilirubin 0.4 AST 39 ALT 31 Alkaline Phosphatase 54 Total Protein 6.9 Albumin 4.1 Globulin 2.8 Albumin/Globulin Ratio 1.5 Lipase 86 H PD MEDICAL DECISION MAKING - ED course Complexity details: reviewed old records, reviewed results, re-evaluated patient, d/w patient ED course: 51-year-old male presents to the emergency department after a fall down the stairs at the skin [facility]. He is homeless and does have a history of alcohol and cannabis use. He is not sure if he just lost his balance or if he fainted because he was turning around with a heavy backpack on. However he did have a brief lapse in consciousness. On presentation he is alert and oriented. [place] of 15 without any focal deficits. He does have a large hematoma to his right forehead. CT head of the head and neck were completed which do not show any acute intracranial findings or cervical spine fracture. He has had stable vitals here in the emergency department. CBC and chemistry panel without acute worrisome findings. He has been able to ambulate without any concerns. He is discharged in stable condition Departure - Departure Disposition: 01 Home, Self Care Clinical Impression: Fall down stairs Qualifiers: Encounter type: initial encounter Qualified Code(s): W10.8XXA - Fall (on) (from) other stairs and steps, initial encounter Traumatic hematoma of forehead Qualifiers: Encounter type: initial encounter Qualified Code(s): S00.83XA - Contusion of other part of head, initial encounter Condition: Stable Record reviewed to determine appropriate education?: Yes Comments: Milton lewis are seen today for a large hematoma or bruise on your forehead. This occurred after you had a fainting episode and fell down the stairs. CT of your head and neck are normal. You have been ambulating normally. At this time no further treatment needs to be rendered. You can eat and drink normally. If at any point you develop a sudden severe headache, have slurred speech facial droop then you should return to the ER
[2021-07-26] MEDS ORDERED: SODIUM CHLORIDE 0.9% 1,000 ML IV STA (17:54)
[2021-07-26 18:22] LABS: BASOPHILS # (AUTO) 0.1 10^3/uL (0.0-0.1); BASOPHILS % (AUTO) 0.8 %; EOSINOPHILS # (AUTO) 0.2 10^3/uL (0.0-0.7); EOSINOPHILS % (AUTO) 2.5 %; HCT - HEMATOCRIT 39.2 % (42.0-52.0); HGB - HEMOGLOBIN 13.5 g/dL (14.0-18.0); LYMPHOCYTES # (AUTO) 1.4 10^3/uL (1.5-3.5); LYMPHOCYTES % (AUTO) 23.5 %; MEAN CORPUSCULAR HEMOGLOBIN 35.3 pg (27.0-31.0); MEAN CORPUSCULAR HGB CONC 34.4 g/dL (32.0-36.0); MEAN CORPUSCULAR VOLUME 102.6 fL (80.0-94.0); MEAN PLATELET VOLUME 10.4 fL (7.4-11.4); MONOCYTES # (AUTO) 0.5 10^3/uL (0.0-1.0); MONOCYTES % (AUTO) 7.9 %; PLT - PLATELET COUNT 157 10^3/uL (130-450); RED BLOOD COUNT 3.82 10^6/uL (4.70-6.10); RED CELL DISTRIBUTION WIDTH 12.4 % (12.0-15.0); WHITE BLOOD COUNT 6.1 x10^3/uL (4.8-10.8)
[2021-07-26 18:33] LABS: ALBUMIN 4.1 g/dL (3.2-5.5); ALBUMIN/GLOBULIN RATIO 1.5 (1.0-2.2); BILIRUBIN,TOTAL 0.4 mg/dL (0.2-1.0); CALCIUM 8.9 mg/dL (8.5-10.3); CREATININE 0.5 mg/dL (0.6-1.2); POTASSIUM 3.6 mmol/L (3.5-5.0); TOTAL PROTEIN 6.9 g/dL (6.7-8.2)
--- NOTE | 2021-07-26 18:54 | CT Report ---
PROCEDURE: CT brain without contrast INDICATIONS: fall down stairs TECHNIQUE: Noncontrast 5 mm thick angled axial sections acquired from the foramen magnum to the vertex. For rad iation dose reduction, the following was used: automated exposure control, adjustment of mA and/or k V according to patient size. COMPARISON: None. FINDINGS: Image quality: Excellent. CSF spaces: Basal cisterns are patent. No extra-axial fluid collections. Ventricles are normal in size and shape. Brain: No midline shift. No intracranial masses or hemorrhage. [place]-white matter interface is norm al. Moderate atrophy and multifocal white matter chronic ischemic change noted. Atherosclerotic vasc ular calcification noted in the cavernous segments of both internal carotid arteries as well as the i ntradural vertebral arteries. Skull and face: Calvarium and visualized facial bones are intact, without suspicious lesions. Righ t frontal scalp hematoma. Debris in the external auditory canals can be correlated with direct visual ization Sinuses: Visualized sinuses and mastoids are clear. IMPRESSION: 1. Right frontal scalp hematoma without skull fracture or intracranial hemorrhage 2. Atrophy and multifocal chronic ischemic change Reviewed by: Dav Dalal MD on 07/26/2021 5:53 PM AKDT Approved by: Dav Dalal MD on 07/26/2021 5:53 PM AKDT Station ID: [id number]
--- NOTE | 2021-07-26 18:58 | CT Report ---
PROCEDURE: CT cervical spine without contrast INDICATIONS: fall down stairs TECHNIQUE: Noncontrast 3 mm thick sections acquired from the skull base to the T4 level. Sagittal and coronal r eformats were then constructed. For radiation dose reduction, the following was used: automated exp osure control, adjustment of mA and/or kV according to patient size. COMPARISON: None. FINDINGS: Image quality: Excellent. Bones: No fractures or dislocations. Visualized superior ribs are intact. Multilevel degenerative disc disease and arthropathy noted in the mid cervical spine. Grade 1 anterior spinal listhesis prese nt at C4-5 and C5-6. Bone mineralization, craniovertebral relationships and prevertebral soft tissue unremarkable Soft tissues: Prevertebral soft tissues are normal in thickness. No paravertebral hematomas. No ap ical pneumothoraces. Bullous emphysematous changes noted particularly in the right lung apex IMPRESSION: Degenerative disc disease and arthropathy without fracture or traumatic malalignment Reviewed by: Dav Dalal MD on 07/26/2021 5:56 PM AKDT Approved by: Dav Dalal MD on 07/26/2021 5:56 PM AKDT Station ID: [id number]
== END 2021-07-26 19:46 | disposition home or self-care (01) ==
LOC: EDUNIT# → ED 17:36
DX: S00.83XA Contusion of other part of head, initial encounter (principal); W10.8XXA Fall (on) (from) other stairs and steps, initial encounter; Z59.00 Homelessness unspecified; F17.200 Nicotine dependence, unspecified, uncomplicated
CPT/HCPCS: 36415; 80053; 83690; 85025; 99282; 99284